=== PATIENT | female | born 1945 | race Caucasian/White ===

== ENCOUNTER 2018-03-05 15:43 | Inpatient (IN) | payer MEDICARE, OTHER ==
[~2018-03-05] VITALS: Ht 157.5 cm; Wt 63.8 kg
[2018-03-05 18:55] LABS: BILIRUBIN,URINE NEGATIVE (NEGATIVE); CLARITY,URINE CLEAR (CLEAR); COLOR,URINE YELLOW (YELLOW); KETONES,URINE NEGATIVE (NEGATIVE); LEUKOCYTE ESTERASE ,URINE NEGATIVE (NEGATIVE); NITRITE,URINE NEGATIVE (NEGATIVE); PROTEIN,URINE DIPSTICK NEGATIVE (NEGATIVE); URINE UROBILINOGEN 0.2 mg/dL (0.2 - 1)
[2018-03-05 19:03] LABS: BACTERIA,URINE MANY /HPF; EPITHELIAL CELLS,URINE MODERATE /LPF; MUCUS,URINE MODERATE (RARE)
[2018-03-05 20:11] LABS: BASOPHILS # (AUTO) 0.1 (0.0-0.1); BASOPHILS % 1.6 % (0.0-1.0); EOSINOPHILS # (AUTO) 0.1 (0.0-0.4); EOSINOPHILS % 1.4 % (0.0-6.0); HEMATOCRIT 45.4 % (34.2-44.1); HEMOGLOBIN 14.8 g/dL (12.0-16.0); LYMPHOCYTES # (AUTO) 1.6 (1.0-3.2); LYMPHOCYTES % 24.8 % (18.0-39.1); MEAN CORPUSCULAR HEMOGLOBIN 28.3 pg (28-32); MEAN CORPUSCULAR HGB CONC 32.6 g/dL (31-35); MEAN CORPUSCULAR VOLUME 86.8 fL (81-99); MONOCYTES # (AUTO) 0.5 (0.2-0.8); MONOCYTES % 7.9 % (4.4-11.3); NEUTROPHILS % 64.1 % (38.7-80.0); PLATELET COUNT 298 x10e3/uL (140-360); RED BLOOD COUNT 5.23 x10e6/uL (3.6-5.1); RED CELL DISTRIBUTION WIDTH 13.8 % (11.7-14.4)
[2018-03-05 20:23] LABS: INR 1.06
[2018-03-05 20:36] LABS: ALANINE AMINOTRANSFERASE 16 IU/L (0-55); ALBUMIN/GLOBULIN RATIO 1.3 (0.8-2.0); ALKALINE PHOSPHATASE 125 IU/L (40-150); ANION GAP 16.3 mmol/L (8-16); BLOOD UREA NITROGEN 13 mg/dL (7-26); BUN/CREATININE RATIO 15 (6-25); CALCIUM 9.9 mg/dL (8.4-10.2); CARBON DIOXIDE 25 mmol/L (22-29); CHLORIDE 103 mmol/L (98-107); CREATINE KINASE 140 IU/L (29-168); CREATININE, SERUM 0.89 mg/dL (0.57-1.11); EST GLOMERULAR FILTRATION RATE > 60 ML/MIN (60-); GLUCOSE 104 mg/dL (74-118); POTASSIUM 4.3 mmol/L (3.5-5.1); SODIUM 140 mmol/L (136-145)
[2018-03-05] MEDS ORDERED: ONDANSETRON HCL INJ 2 MG/ML VIAL IV STA (20:56)
[2018-03-05] MEDS ORDERED: MORPHINE SULFATE 2 MG/ML SYR IV PRN (21:00)
[2018-03-05] MEDS: SODIUM CHLORIDE 0.9% 1000ML 1,000 ML IV SCH (21:19)
[2018-03-05] MEDS: MORPHINE SULFATE INJ 4 MG/ML INJ IV PRN (21:29)
[2018-03-06 01:56] LABS: HEMATOCRIT 41.8 % (34.2-44.1); HEMOGLOBIN 13.7 g/dL (12.0-16.0)
[2018-03-06] MEDS: MORPHINE SULFATE INJ 4 MG/ML INJ IV PRN ×3 (03:12→11:45)
[2018-03-06 05:29] LABS: HEMATOCRIT 40.1 % (34.2-44.1)
[2018-03-06] MEDS: SODIUM CHLORIDE 0.9% 1000ML 1,000 ML IV SCH (05:30)
[2018-03-06] MEDS: PANTOPRAZOLE 40 MG 10ML VIAL IV SCH (09:16)
[2018-03-06] MEDS ORDERED: NITROGLYCERIN SL (10:55)
[2018-03-06] MEDS ORDERED: ASPIRIN81 MG (10:55)
[2018-03-06] MEDS ORDERED: AMLODIPINE BESYL5 MG PO (10:55)
[2018-03-06] MEDS ORDERED: ATACAND8 MG PO (10:55)
[2018-03-06] MEDS ORDERED: AMBIEN10 MG PO (10:55)
[2018-03-06] MEDS ORDERED: PLAVIX75 MG PO (10:55)
[2018-03-06] MEDS ORDERED: ULTRAM50 MG PO (10:55)
[2018-03-06] MEDS ORDERED: ATORVASTATIN CA20 MG PO (10:55)
[2018-03-06] MEDS ORDERED: ATENOLOL50 MG (10:55)
[2018-03-06] MEDS: TRIMETHOPRIM/SULFAMETHOXAZOLE 160-800 MG TAB PO SCH ×2 (11:00→20:59)
--- NOTE | 2018-03-06 12:39 | Consultation ---
DATE OF CONSULTATION: March 06, 2018 CARDIOLOGY CONSULTATION ATTENDING PHYSICIAN: Dr. Oviedo. ROOM: ER. Thank you so much for asking me to see this nice lady in consultation. Ms. Reid is a charming 73-year-old woman with known coronary disease who presents to the emergency room with a complaint of rectal bleeding. HISTORY OF PRESENT ILLNESS: Patient reports that on Monday morning, the 02 of March, she awoke to have painless bright red blood per rectum with repeat times 2 and, after talking to family, went to the [facility] Emergency Room where evidently they did CAT scan of the abdomen with no findings. They discharged her to home. Since that time, she has come to the [facility] Emergency Room. PAST MEDICAL HISTORY: Long and complex with previous coronary stenting she reports times 3 before 1999. She has not been told that she has a weak heart. She has continued to use aspirin, Plavix, and nitroglycerin tablets 4 times a day since those procedures, although she reports that she has not had any chest discomfort. She has had remote breast surgery for fibrocystic disease. CURRENT HOSPITAL MEDICATIONS: Include trimethoprim sulfamethoxazole. She was using aspirin, Plavix and nitroglycerin tablets at home as mentioned above. PERSONAL SOCIAL HISTORY: She reports she has never smoked. REVIEW OF SYSTEMS PULMONARY: She reports that she had asthma years ago but that had resolved. CARDIAC: She has never known of any edema. PHYSICAL EXAMINATION GENERAL: At this time shows a pleasant elderly woman who is comfortable and conversant. HEENT: Unremarkable. NECK: No jugular venous distention, no bruits. THORAX: Heart sounds S1, S2 are equal. No murmurs. LUNGS: Clear. ABDOMEN: Protuberant. Normal bowel sounds. Nontender. No masses. EXTREMITIES: No cyanosis, clubbing, or edema. EKG shows sinus rhythm without ST or T-wave changes. PERTINENT LABORATORY STUDIES: Show normal troponin, normal CK and CK-MB. Her BUN 13, creatinine 0.89, glucose 104. PT and PTT are normal. Hemoglobin today 13.0. ASSESSMENTS 1. Painless rectal bleeding, etiology not clear. 2. History of remote coronary disease without recurrent coronary symptoms. Still using aspirin and Plavix. PLAN: Will monitor closely with you. She has no active need for aspirin and Plavix. Will withhold them at this time and will monitor closely with you. Will await gastrointestinal evaluation. Thank you for asking to see her in consultation. Job#: [id number] LIZBETH
--- NOTE | 2018-03-06 12:54 | History and Physical ---
Yesenia Reid is a 73-year-old female who presented to the office complaining of multiple episodes of rectal bleed this past weekend. The patient reports that she was evaluated in the emergency room in [place]. Patient reports the CAT scans were performed, lab was drawn, and she was sent home to be followed up by her PCP. Patient reports she still had the bloody stool up until yesterday. Patient reports no bowel movements today. Patient complains of severe lumbar back pain. SOCIAL HISTORY: Noncontributory. FAMILY HISTORY: Noncontributory. ALLERGIES: REPORTED CIPRO, CODEINE, AND DURICEF. MEDICATIONS: At this time 1. Ambien. 2. Atenolol. 3. Nitroglycerin. 4. Tramadol. 5. Aspirin. 6. Candesartan. 7. Atorvastatin. 8. Plavix. HISTORY OF PAST ILLNESS: Hypertension, hyperlipidemia, chronic insomnia, coronary artery disease with times 2 vessels, degenerative disk disease. REVIEW OF SYSTEMS HEENT: Normal. CARDIAC: Hypertension, hyperlipidemia, coronary artery disease. RESPIRATORY: History of bronchial asthma. GI: Rectal bleed. : Normal. MUSCULOSKELETAL: Excruciating pain in the lumbar spine. NEURO AND ENDOCRINE: Essentially normal. BREASTS: History of subcutaneous mastectomy approximately 30 years back for severe fibrocystic disease of the breast. PHYSICAL EXAMINATION GENERAL: A moderately built female, no palpable adenopathy. HEART: Within normal limits. LUNGS: Clear. BREASTS: Deferred. ABDOMEN: Obese. RECTAL AND VAGINAL: Deferred. CENTRAL NERVOUS SYSTEM: Essentially normal. EXTREMITIES: Essentially normal. There is excruciating tenderness at the L4-L5. IMPRESSIONS 1. Rectal bleed. 2. History of hypertension. 3. History of coronary artery disease. 4. History of hyperlipidemia. 5. History of insomnia. PLAN: To have her be admitted for further evaluation. The rectal bleed seems to be persistent, to have a colonoscopy, to have cardiology follow her. Job#: [id number] LIZBETH
[2018-03-06 14:07] LABS: HEMATOCRIT 40.7 % (34.2-44.1); HEMOGLOBIN 13.4 g/dL (12.0-16.0)
--- NOTE | 2018-03-06 17:45 | Consultation ---
DATE OF CONSULTATION: March 06, 2018 GI CONSULTATION REASON FOR CONSULTATION: Recurrent painless rectal bleeding for 2 to 3 days. HISTORY OF PRESENT ILLNESS: A 73-year-old white female who is a patient of Dr. Oviedo for many years. She lives in [place]. She developed acute onset of painless recurrent rectal bleeding, bright red blood mostly on the wipe and sometimes on the top of the stool, multiple times for the last 2 days. She went to emergency room in [place] where she had a CT scan and blood work done. She was reassured and discharged home. However since rectal bleeding intermittently continued therefore she decided to seek medical retention. She came to Dr. Oviedo's office. Dr. Oviedo felt that she needs further workup. Therefore she got admitted through the emergency room. Hemodynamically stable. She is on aspirin and Plavix for coronary stents. She is not on any anticoagulants. She has not had any episodes of rectal bleeding in last 24 hours. She has had a colonoscopy more than 10 years ago. No family history of colon cancer. No associated abdominal pain. However she does have some dyspepsia, postprandial upper abdominal fullness, occasional reflux. Never had any upper endoscopy. REVIEW OF SYSTEMS: Twelve-point system reviewed, symptomatology is limited to GI system. GI system as per history of present illness. PAST MEDICAL HISTORY: Coronary artery disease, hypertension, hyperlipidemia. PAST SURGICAL HISTORY: Bilateral breast implants secondary to fibrocystic disease of the breasts that required bilateral mastectomy in the past. PCI coronary stents. Colonoscopy in the remote past. FAMILY HISTORY: Negative for any GI or [employer] cancers. SOCIAL HISTORY: No smoking, alcohol or any illicit drug use. ALLERGIES: CEFADROXIL, CIPROFLOXACIN AND CODEINE. HOME MEDICATIONS: Amlodipine, aspirin, atenolol, atorvastatin, candesartan, clopidogrel, tramadol, zolpidem, nitroglycerin sublingual. PHYSICAL EXAMINATION VITAL SIGNS: Temperature 98.5, pulse 64, respirations 20, blood pressure 131/69, oxygen saturation 95% on room air. GENERAL: Not in any acute distress. HEENT: Moist mucous membrane. Anicteric sclera. CVS: S1, S2 regular. LUNGS: Bilaterally grossly clear. ABDOMEN: Soft, nondistended, nontender. No palpable mass or hernia. Positive bowel sounds. EXTREMITIES: Warm. No leg edema. RECTAL: Deferred as it will be done during colonoscopy. LABORATORY DATA: WBC 6.24, hemoglobin 14.8, it has dropped down to 13.4 in last 24 hours, hematocrit 45.4. MCV 86.8. Platelet count 298. PT 13.0, INR 1.06, PTT 30. Electrolytes normal. BUN 13, creatinine 0.89. Liver enzymes normal. IMPRESSION: Painless rectal bleeding, seems outlet type of bleeding secondary to hemorrhoids. However other etiologies such as ischemic colitis, colon cancer, or large polyps needs to be excluded. PLAN: Clear liquid diet, bowel prep tonight. Colonoscopy tomorrow. Since patient is also having upper GI symptoms of dyspepsia, reflux, she has never had any upper endoscopy, therefore upper endoscopy will also be performed in the same setting. I thank Dr. Oviedo for allowing me to participate in the care of this patient. Job#: [id number] MILAN
[2018-03-06] MEDS ORDERED: BISACODYL 5 MG TAB EC PO NR (18:15)
[2018-03-06] MEDS ORDERED: PEG (High)/E-LYTE SOLN 4,000 ML BTL PO NR (18:15)
[2018-03-06 20:26] VITALS: BP 127/68
[2018-03-06 23:03] VITALS: BP 127/68
[2018-03-07] VITALS (7 sets, daily range): BP systolic 102–175; BP diastolic 53–92
[2018-03-07] MEDS: MORPHINE SULFATE INJ 4 MG/ML INJ IV PRN ×5 (00:56→20:52)
[2018-03-07 05:02] LABS: HEMATOCRIT 38.8 % (34.2-44.1); HEMOGLOBIN 12.4 g/dL (12.0-16.0)
--- NOTE | 2018-03-07 07:13 | Diagnostic Imaging Report ---
EXAMINATION: MRI of the lumbar spine without contrast HISTORY: Low back pain, radiculopathy COMPARISON: None. TECHNIQUE: Sagittal T1, T2, STIR; axial T2 and proton density. FINDINGS: It is assumed that there are 5 lumbar vertebrae. Curvature/Alignment: Levoscoliosis with apex at L2-L3. Grade 1 anterolisthesis at L2-L3. Minimal retrolisthesis at L1-L2 and L3-L4. Straightening of the lumbar lordosis. Vertebrae: No evidence of recent fracture, infection, or neoplasm. Chronic endplate degenerative changes danielle and T12-L5. Conus: Normal, terminating at L1 Cauda equina: Circumferential narrowing of the thecal sac at the level of stenosis at the L2, otherwise unremarkable Lower thoracic: Mild multilevel spondylosis with mild canal and foraminal narrowing at T12-L1. Paraspinal soft tissues: Multiple T2 hyperintense probable cyst or hemangiomas in the liver. T2 hyperintense probable cyst in the right kidney. Severe paraspinal musculature atrophy from L3 to the sacrum. Degenerative changes: Decreased disc height and T2 signal intensity as well as diffuse symmetric disc bulges and marginal endplate osteophytes from T12 to L5. L1-L2: Spondylosis and facet arthrosis. Moderate bilateral foraminal stenoses. Mild canal narrowing L2-L3: Spondylosis, ligamenta flava thickening and facet arthrosis. Severe spinal canal and moderate right foraminal stenoses. L3-L4: Spondylosis and prominent facet arthrosis. Moderate bilateral foraminal stenoses. L4-L5: Spondylosis and facet arthrosis. Moderate foraminal stenoses. No canal stenosis L5-S1: Decompressive laminectomy, solid interbody and posterior fusion. No significant stenoses. Sacroiliac joints: Degenerative changes bilaterally, right iliac dorsal bone defect likely related to donor site. IMPRESSION: 1. Prominent levoscoliosis centered at L2-L3. Minimal retrolisthesis at L1-L2 and L3-L4. 2. Moderate to severe foraminal stenoses from L1-L2 to L4-5 due to degenerative changes and scoliosis as detailed above. 3. Severe degenerative spinal canal stenoses at L2-L3 and mild to moderate at L1-2 and L3-4. 4. Postoperative changes with solid fusion at L5-S1, no stenoses. 5. Partially visualized T2 hyperintense foci in the liver and right kidney, comparison to prior studies if available is recommended, otherwise an abdomen ultrasound is advised for further evaluation. Signed by: Dr. Jenni Josue M.D. on 03/07/2018 7:09 AM
--- NOTE | 2018-03-07 07:22 | Diagnostic Imaging Report ---
EXAMINATION: MRI of the thoracic spine without contrast HISTORY: Mid back pain, radiculopathy. COMPARISON: None. TECHNIQUE: Sagittal T1 without contrast, T2, and STIR; axial T2. Coronal T2. FINDINGS: Curvature: Mild increased mid thoracic kyphosis due to mild chronic anterior wedging/compression fracture of the T4, T5, T6, T7 and T8 vertebral bodies. Vertebrae: No evidence of recent fracture, infection, or neoplasm. Prominent chronic endplate degenerative changes throughout the entire thoracic spine as well as partially visualized; lumbar spine. Discs: Decreased disc height and T2 signal intensity, symmetric and asymmetric disc bulges as well as marginal endplate osteophytes at all levels. T6-T7: Small 3 mm AP diameter left paracentral disc protrusion with mild canal narrowing. T8-T9: Small 2 mm right paracentral disc protrusion without significant stenoses. T12-L1: Symmetric disc bulge, ligamentum flavum thickening and facet arthroses. Mild canal and mild to moderate foraminal stenoses Spinal canal: No mass or abnormal blood vessels. Spinal cord: Normal size and signal intensity. Foramina: Mild foramina narrowing from T9-T10 to T12-L1 due to facet arthrosis. Paraspinal soft tissues: Prominent dilatation with air fluid level within it in the thoracic esophagus. Partially visualized T2 hyperintense foci in the liver.. Proximal ribs: No abnormal signal intensity. IMPRESSION: 1. Mild increased mid thoracic fossa is due to minimal chronic anterior wedging of the midthoracic vertebral bodies. 2. Mild multilevel spondylosis throughout the thoracic spine with mild canal narrowing at T12-L1. 3. Prominent dilatation of the thoracic esophagus, correlation for distal obstruction or achalasia is recommended. 4. Partially visualized T2 hyperintense foci in the liver and right kidney, again an abdominal ultrasound is recommended if not previously evaluated. Signed by: Dr. Jenni Josue M.D. on 03/07/2018 7:19 AM
[2018-03-07] MEDS: TRIMETHOPRIM/SULFAMETHOXAZOLE 160-800 MG TAB PO SCH ×2 (08:23→20:32)
[2018-03-07] MEDS: PANTOPRAZOLE 40 MG 10ML VIAL IV SCH (08:23)
[2018-03-07 11:38] LABS: HEMATOCRIT 38.6 % (34.2-44.1); HEMOGLOBIN 12.6 g/dL (12.0-16.0)
[2018-03-07] MEDS ORDERED: PROPOFOL IV EMULSION 10 MG/ML 20 ML VIAL ONE (14:38)
[2018-03-07] MEDS ORDERED: LIDOCAINE HCL 2% LOCAL INJ 5 ML SDV VIAL INJ ONE (14:38)
[2018-03-07] MEDS ORDERED: FENTANYL CITRATE/PF 100MCG/2 ML INJ ONE (16:34)
[2018-03-07] MEDS ORDERED: MIDAZOLAM HCL 2 MG/2 ML VIAL ONE (16:34)
--- NOTE | 2018-03-07 17:46 | Consultation ---
DATE OF CONSULTATION: March 07, 2018 NEUROSURGICAL CONSULTATION REASON FOR CONSULTATION: Lumbar spinal stenosis. The patient is a 73-year-old woman who has previously undergone a lumbar laminectomy in the distant past more than 20 years ago in the lower lumbar spine. She had been doing well until 5 years ago, since which time she has developed progressively severe low back pain. For the past 2 years the back pain has interfered with her ambulation and she can only walk short distances before she has to sit down. She tends to lean forward when she walks. When she goes grocery shopping, she leans on her shopping cart. For the past 3 weeks she has had a radiating pain from the back to the right thigh as well as the knee. She denies any numbness in the legs. She denies any incontinence. She had an episode of rectal bleeding which brought her to the hospital, and she had a colonoscopy today which revealed some polyps. She had an MRI of the lumbar spine which revealed severe L2-3 spinal stenosis, and I was consulted. PHYSICAL EXAMINATION: The patient is alert and lucid. Motor and sensory exam are normal in the upper extremities. The motor strength is mildly diminished in the right iliopsoas, grade of 3/5. The patient has to use her arm to assist with the lifting of her right leg against gravity. Sensory testing to light touch and pinprick reveals no definite dermatomal deficits. Deep tendon reflexes are absent in the patella and Achilles tendons. Plantar responses are flexor. Straight leg raising provokes low back pain bilaterally and right hip pain at 30 degrees. MRI of the lumbar spine was reviewed. There is extensive and severe multilevel degenerative disk disease throughout the lumbar and lower thoracic spine. There is severe bilateral facet arthropathy. These findings culminate in severe spinal stenosis at L2-3 due to a combination of facet and ligamentous hypertrophy and grade 1 degenerative spondylolisthesis. IMPRESSION: Severe L2-3 spinal stenosis in the setting of extensive degenerative disk and facet disease. I recommended L2-3 bilateral decompressive laminectomy. I have explained to the patient that the purpose of this operation is to improve her gait and to prevent the progressive worsening of the gait disorder. I have explained that the operation will not cure her back pain because of the extensive underlying degenerative disk and facet disease. She understands and accepts this. The risks of infection, bleeding, cerebrospinal fluid leakage and persistent pain, numbness and weakness were explained to the patient. She gives informed consent to proceed with surgery. We will proceed with surgery tomorrow. Job#: [id number] EV
[2018-03-07 18:21] LABS: HEMATOCRIT 42.1 % (34.2-44.1); HEMOGLOBIN 13.4 g/dL (12.0-16.0)
[2018-03-08] VITALS: BP 174/77
[2018-03-08] MEDS: MORPHINE SULFATE INJ 4 MG/ML INJ IV PRN ×3 (01:15→20:02)
[2018-03-08 04:00] VITALS: BP 179/74
[2018-03-08 05:00] LABS: HEMATOCRIT 39.7 % (34.2-44.1); HEMOGLOBIN 12.8 g/dL (12.0-16.0)
[2018-03-08] MEDS ORDERED: ACETAMINOPHEN 1000 MG/100 ML 100 ML IV ONE (07:48)
[2018-03-08] MEDS ORDERED: LIDOCAINE HCL (LTA) 4 ML SOLN ONE (07:48)
[2018-03-08 08:00] VITALS: BP 131/72
[2018-03-08] MEDS: TRIMETHOPRIM/SULFAMETHOXAZOLE 160-800 MG TAB PO SCH ×2 (08:23→20:01)
[2018-03-08] MEDS: PANTOPRAZOLE SOD 40 MG TABEC PO SCH (08:23)
[2018-03-08] MEDS ORDERED: VANCOMYCIN 1GM/NS 250 ML 250 ML IV PRN (10:30)
[2018-03-08 10:41] LABS: HEMATOCRIT 39.8 % (34.2-44.1); HEMOGLOBIN 13.3 g/dL (12.0-16.0)
--- NOTE | 2018-03-08 10:47 | Discharge Summary ---
Yesenia Reid is a 73-year-old white female who presented with rectal bleed. For details of history and physical, please review my dictation dated March 05, 2018. On admission, routine lab investigations were done. CBC showed a hemoglobin of 14.8, hematocrit 45.4, , and platelets at 298,000. The patient has had a slow drop in the hemoglobin today being 12.8. However, not a drastic drop to give her any blood transfusion. Sodium of 140, potassium 4.3, chloride 103, CO2 25, BUN 13, creatinine 0.89, glucose 104. Calcium 9.9. Bilirubin 0.6, SGOT 23, SGPT 16, alkaline phosphatase 125. CK-MB was 1.8. Troponin is 0.001. Total protein 7.2, albumin 4, globulin 3.2. Imaging consists of MRI of the lumbar and thoracic spine. The patient had L1-L2 spondylosis and facet arthrosis, moderate bilateral foraminal stenosis, mild canal narrowing, L2-L3 again spondylosis, severe spinal canal stenosis, and moderate right foraminal stenosis of L3-L4 spondylosis, moderate foraminal stenosis, L4-L5, moderate foraminal stenosis. No canal stenosis. A L5-S1 decompression laminectomy, solid interbody and posterior fusion, sacroiliac joint degenerative changes bilaterally. This was done because of extreme amount of pain in the lumbar and thoracic spine. The patient's thoracic spine showed T6-T7 left paracentral disk protrusion with canal narrowing, T8-T9 small 2 mm right paracentral disk protrusion, T12-L1 symmetric disk bulge. The patient had a consultation with Dr. Yimi Yao. The patient had EGD, which was reported essentially normal. Colonoscopy showed a few small polyps, 2 of them to be specific. There was external hemorrhoids. There was no carcinoma. The patient had a consultation with Dr. Bates. He had suggested L2-L3 bilateral decompression laminectomy. The patient will have surgery on March 08, 2018. The patient will possibly be transferred to rehab if possible tomorrow. Consultation with Dr. Willy Anderson, cover creaser, was also obtained. BETZY VICENTE MD Job#: [id number] RI
[2018-03-08] MEDS ORDERED: BACITRACIN 50,000 UNIT VIAL ONE (11:14)
[2018-03-08] MEDS ORDERED: BUPIVACAINE 0.5%/EPI 30 ML SDV INJ ONE (11:14)
[2018-03-08] MEDS ORDERED: THROMBIN FOR SOLN 5,000 UNIT VIAL ONE (11:14)
[2018-03-08 12:00] VITALS: BP 151/80
[2018-03-08] MEDS ORDERED: GELATIN SPONGE SZ 100 ONE (12:20)
[2018-03-08] MEDS ORDERED: MAGNESIUM/ALUMINUM/SIMETHICONE 30 ML UDC PO PRN (13:15)
[2018-03-08] MEDS ORDERED: ACETAMINOPHEN 325 MG TAB PO PRN (13:15)
[2018-03-08] MEDS ORDERED: CEPACOL SORE THROAT LOZENGES PO PRN (13:15)
[2018-03-08] MEDS ORDERED: MORPHINE SULFATE INJ 4 MG/ML INJ IM PRN (13:15)
[2018-03-08] MEDS ORDERED: CARISOPRODOL 350 MG TAB PO PRN (13:15)
[2018-03-08] MEDS ORDERED: VANCOMYCIN 1GM/NS 250 ML 250 ML IV SCH (13:15)
[2018-03-08] MEDS ORDERED: PROMETHAZINE HCL (IM) 25 MG/ML VIAL IM PRN (13:15)
[2018-03-08] MEDS ORDERED: ONDANSETRON HCL INJ 2 MG/ML VIAL IV PRN (13:15)
[2018-03-08] MEDS ORDERED: FENTANYL CITRATE/PF 100MCG/2 ML INJ ONE ×2 (13:22→16:46)
[2018-03-08] MEDS ORDERED: HYDROMORPHONE 1MG/1ML INJ ONE (13:46)
--- NOTE | 2018-03-08 13:59 | Operative Report ---
DATE OF PROCEDURE: March 08, 2018 PREOPERATIVE DIAGNOSIS: Severe L2-3 spinal stenosis with neurogenic claudication, M48.062. POSTOPERATIVE DIAGNOSIS: Severe L2-3 spinal stenosis with neurogenic claudication, M48.062. PROCEDURES 1. L2 bilateral decompressive laminectomy and L2-3 bilateral medial facetectomies, 88818. 2. L3 bilateral partial decompressive laminectomy, 13761. ANESTHESIA: General. INDICATIONS: The patient is a 73-year-old woman who presents with L2-3 severe spinal stenosis and was taken to the operating room for bilateral decompressive laminectomy. PROCEDURE: After induction of general anesthesia, the patient was placed on the operating table in prone position over a Mikey frame. Lumbar region was prepped and draped in sterile fashion. A preoperative x-ray was obtained. A midline incision was created. Lumbar fascia was opened along the midline. Dissection was carried out to expose the L2 and L3 laminae and the medial aspect of the facet joints. A 2nd x-ray confirmed correct localization. The operating microscope was brought in. The spinous processes were resected. The high-speed drill equipped with a 5-mm toyin bur was used to drill the inferior half of the lamina of L2 and the superior aspect of the lamina of L3, and the medial aspect of the L2-3 facet joints bilaterally. The markedly hypertrophic ligamentum flavum was resected and the dural sac and the L3 traversing nerve roots were exposed and decompressed. Meticulous hemostasis was secured. Retractor was removed. The dura was covered with a layer of Gelfoam. The wound was closed in multiple layers with 0 and 2-0 Vicryl sutures. The skin was closed with 3-0 Monocryl sutures in subcuticular fashion. Steri-Strips and a dressing were applied. The patient was awakened, extubated, and taken to post anesthesia care unit in stable condition. No intraoperative complications were encountered. Estimated blood loss was 20 mL. Job#: [id number] LIZBETH
[2018-03-08 16:00] VITALS: BP 144/66
[2018-03-08] MEDS: LACTATED RINGER'S 1,000 ML IV SCH (16:20)
[2018-03-08] MEDS ORDERED: MIDAZOLAM HCL 2 MG/2 ML VIAL ONE (16:46)
[2018-03-08 16:55] LABS: HEMATOCRIT 40.3 % (34.2-44.1); HEMOGLOBIN 13.4 g/dL (12.0-16.0)
[2018-03-08] MEDS ORDERED: ROCURONIUM BROMIDE 10 MG/ML 5ML VIAL ONE (18:08)
[2018-03-08] MEDS ORDERED: LIDOCAINE HCL 2% JELLY 5 ML TUBE ONE (18:08)
[2018-03-08] MEDS ORDERED: DEXAMETHASONE SOD PHOS INJ 4 MG/ML VIAL ONE (18:08)
[2018-03-08] MEDS ORDERED: NEOSTIGMINE 5 MG/5ML SYR ONE (18:08)
[2018-03-08] MEDS ORDERED: PROPOFOL IV EMULSION 10 MG/ML 20 ML VIAL ONE (18:08)
[2018-03-08] MEDS ORDERED: GLYCOPYRROLATE INJ 1MG/ 5 ML SYR ONE (18:08)
[2018-03-08] MEDS ORDERED: LIDOCAINE HCL 2% LOCAL INJ 5 ML SDV VIAL INJ ONE (18:08)
[2018-03-08] MEDS ORDERED: DESFLURANE 240 ML BTL INH ONE (18:08)
[2018-03-08 20:00] VITALS: BP 125/58
[2018-03-08] MEDS: ZOLPIDEM TARTRATE 5 MG TAB PO PRN (21:11)
[2018-03-08] MEDS: VANCOMYCIN 1GM/NS 250 ML 250 ML IV SCH (21:36)
[2018-03-09] VITALS (7 sets, daily range): BP systolic 136–186; BP diastolic 64–76
[2018-03-09] MEDS: LACTATED RINGER'S 1,000 ML IV SCH ×3 (00:37→14:08)
[2018-03-09] MEDS: MORPHINE SULFATE INJ 4 MG/ML INJ IV PRN ×4 (03:07→20:43)
[2018-03-09] MEDS: TRIMETHOPRIM/SULFAMETHOXAZOLE 160-800 MG TAB PO SCH ×2 (07:53→20:37)
[2018-03-09] MEDS: PANTOPRAZOLE SOD 40 MG TABEC PO SCH (07:53)
[2018-03-09] MEDS: OXYCODONE/ACETAMINOPHEN 5-325 1 EACH TABLET PO PRN ×2 (07:53→23:14)
[2018-03-09] MEDS: VANCOMYCIN 1GM/NS 250 ML 250 ML IV SCH (12:09)
--- NOTE | 2018-03-09 16:13 | Consultation ---
DATE OF CONSULTATION: March 09, 2018 REFERRING PHYSICIAN: Dr. Anthony Anthony. Thank you Dr. Anthony for asking me to see Ms. Reid in consultation. REASON FOR CONSULTATION: 1. Status post lumbar laminectomy secondary to severe L2-3 spinal stenosis with extensive degenerative disk facet disease. 2. Recent GI bleed requiring endoscopy. 3. Hypertension. 4. Significant pain syndrome. HISTORY: Ms. Reid is a 73-year-old female who has previously undergone lumbar laminectomy about 20 years ago. She had been doing well until about 5 years ago when she started developing progressively back pain. For the past 2 years, it has interfered with her ambulation. She can only walk short distances before she has to sit down. She tends to flex forward at her waist. She has radiating pain to the top of her thighs as well as the knee over the past 3 weeks. She also had an episode of GI bleed and underwent endoscopy while here. She underwent surgery yesterday for laminectomy. The patient is doing better, but still having impairment with gait and mobility, transfers and ADLs. Also, having some pain issues, which is to be expected following the extent of the back issues she is having. I am being asked to evaluate for rehab needs. PAST MEDICAL HISTORY: Hypertension, hyperlipidemia, chronic insomnia, coronary artery disease, degenerative disk disease. PAST SURGICAL HISTORY: Previous lumbar laminectomy. ALLERGIES: CIPRO, CODEINE, DURICEF. HABITS: Denies. SOCIAL HISTORY: Lives by herself in a one-story home. 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 Did not use any kind of assist device, was functional ambulator. When she would go to the market, she would have to use a cart to get around. Does not use any assist device at this time. LABORATORY DATA: Hemoglobin 12.6, hematocrit 38.6, sodium 140, potassium 4.3, BUN 13, creatinine 0.89. PHYSICAL EXAMINATION GENERAL: The patient is awake and alert and in no apparent distress at this time, but having issues with hypertension. VITAL SIGNS: Blood pressure high at 186/67. HEART: Regular. LUNGS: Fair air entry. ABDOMEN: Nontender, nondistended. : No complaints of bowel or bladder issues except for the fact that she had recent GI bleed. EXTREMITIES: Functional range of motion to the arms as well as the legs. Sensory sharp: Denies any numbness or tingling at this time. Upper extremity strength 4/5 strength and lower extremity strength 4/5. Hip and knee flexion and extension is 4-,4/5 strength. Ankle dorsiflexion and plantar flexion is 4+/5 strength. Rehab sharp, the patient was ambulatory with the therapist, today walking about 75 feet with moderate assist, multiple rest breaks, having problems with pain on exercising. IMPRESSION 1. Status post L2-3 lumbar laminectomy secondary to severe spinal stenosis. 2. Degenerative disk disease. 3. Recent gastrointestinal bleed, status post colonoscopy. 4. Hypertension. 5. Coronary artery disease. 6. Significant pain syndrome. PLAN: The patient lives by herself and because of the pain issues as well as need to monitor for bleed, which she has been evaluated for, but still need to monitor her hemoglobin and hematocrit, would recommend a short stay inpatient rehab to build up her strength and endurance so that she can go back home at a higher level of function. I do not believe she can get the same level of care setting and I think the medical issues, i.e. medications needed to help control pain as well as monitoring for taking care of her blood pressure, so that it is better, I would recommend inpatient rehab. Try to get her moved over as soon as possible. Precautions: Falls. Thank you once again for allowing me to participate in the care of this pleasant patient. Job#: [id number]
--- NOTE | 2018-03-09 17:50 | Progress Note ---
DATE: March 09, 2018 SUBJECTIVE: Patient reports no further rectal bleeding. Tolerating oral diet. She has had a back surgery yesterday. REVIEW OF SYSTEMS: CVS: No chest pain or palpitation. GENERAL: No fever or chills. RESPIRATORY: No cough or expectoration. MEDICATIONS: Reviewed MAR. The patient has been taken off aspirin and Plavix. OBJECTIVE VITAL SIGNS: Temperature 98.3, pulse 74, [id number], blood pressure 145/67, oxygen saturation 96% on room air. GENERAL: Not in any acute distress. Oral mucosa is moist. Anicteric sclerae. CVS: S1 and S2 regular. LUNGS: Bilaterally grossly clear. ABDOMEN: Soft, nondistended, nontender. No mass or hernia. Positive bowel sounds. EXTREMITIES: Warm. No leg edema. LABS: Hemoglobin remains stable 13.4 and hematocrit 40.3. IMPRESSION: Rectal bleeding likely due to hemorrhoids. Colonoscopy is negative. Upper endoscopy showed some gastritis and biopsies taken, biopsy result is pending. PLAN: From GI standpoint, patient can be discharged home. Will follow in the office in a week or two. Continue PPI daily. Continue Protonix daily. Patient to follow up with me in my office in one to two weeks post discharge. Job#: [id number]
[2018-03-09] MEDS: ZOLPIDEM TARTRATE 5 MG TAB PO PRN (23:14)
[2018-03-10 00:04] VITALS: BP 123/59
[2018-03-10] MEDS: OXYCODONE/ACETAMINOPHEN 5-325 1 EACH TABLET PO PRN (05:21)
[2018-03-10 05:31] VITALS: BP 134/69
[2018-03-10 08:00] VITALS: BP 121/59
[2018-03-10] MEDS: TRIMETHOPRIM/SULFAMETHOXAZOLE 160-800 MG TAB PO SCH (08:28)
[2018-03-10] MEDS: PANTOPRAZOLE SOD 40 MG TABEC PO SCH (08:28)
[2018-03-10 08:44] VITALS: BP 121/59
== END 2018-03-10 09:48 | DRG 988 ==
LOC: ER 15:43 → ERHOLD 21:10 → MED/SURG2 03-06 18:43
PROVIDERS: ADMIT Internal Medicine Medical Oncology; ATTEND Internal Medicine Medical Oncology
PROC: 0D5M8ZZ Destruction of Descending Colon, Via Natural or Artificial Opening Endoscopic (ICD-10-PCS; 2018-03-07)
PROC: 0DBL8ZX Excision of Transverse Colon, Via Natural or Artificial Opening Endoscopic, Diagnostic (ICD-10-PCS; 2018-03-07)
PROC: 0DB98ZX Excision of Duodenum, Via Natural or Artificial Opening Endoscopic, Diagnostic (ICD-10-PCS; 2018-03-07)
PROC: 0DB78ZX Excision of Stomach, Pylorus, Via Natural or Artificial Opening Endoscopic, Diagnostic (ICD-10-PCS; 2018-03-07)
PROC: 0DBK8ZX Excision of Ascending Colon, Via Natural or Artificial Opening Endoscopic, Diagnostic (ICD-10-PCS; 2018-03-07 14:30)
PROC: 01NB0ZZ Release Lumbar Nerve, Open Approach (ICD-10-PCS; principal; 2018-03-08 10:30)
DX: K64.8 Other hemorrhoids (principal); K62.5 Hemorrhage of anus and rectum; I10 Essential (primary) hypertension; E78.5 Hyperlipidemia, unspecified; I25.10 Atherosclerotic heart disease of native coronary artery without angina pectoris; Z95.5 Presence of coronary angioplasty implant and graft; M48.062 Spinal stenosis, lumbar region with neurogenic claudication; K63.5 Polyp of colon; K57.30 Diverticulosis of large intestine without perforation or abscess without bleeding; K29.70 Gastritis, unspecified, without bleeding; K44.9 Diaphragmatic hernia without obstruction or gangrene
CPT/HCPCS: 36415; 43239; 45385; 72020; 72146; 72148; 80053; 81001; 82550; 82553; 84484; 85014; 85018; 85025; 85610; 85730; 87086; 88304; 88305; 88311; 88312; 93005; 96374; 99284; J1100; J1170; J2001; J2250; J2270; J2405; J3370; J7030; J7120